=== PATIENT | female | born 1945 | race Caucasian/White ===

== ENCOUNTER → 2019-08-10 | Outpatient (CLI) | payer MEDICARE, OTHER ==
--- NOTE | 2019-08-10 12:10 | RADIOLOGY REPORT (SQ) ---
EXAM DESCRIPTION: CHEST PA/LATERAL COMPLETED DATE/TIME: 08/10/2019 11:58 am REASON FOR STUDY: WHEEZING COMPARISON: None. EXAM PARAMETERS: NUMBER OF VIEWS: two views TECHNIQUE: Digital Frontal and Lateral radiographic views of the chest acquired. RADIATION DOSE: NA LIMITATIONS: none FINDINGS: LUNGS AND PLEURA: No opacities, masses or pneumothorax. No pleural effusion. MEDIASTINUM AND HILAR STRUCTURES: No masses or contour abnormalities. HEART AND VASCULAR STRUCTURES: Heart normal size. No evidence for failure. BONES: No acute findings. HARDWARE: Right-sided pacemaker, clips post cholecystectomy OTHER: Eventration left hemidiaphragm IMPRESSION: NO SIGNIFICANT RADIOGRAPHIC FINDING IN THE CHEST. TECHNICAL DOCUMENTATION: JOB ID: [id number] 2010 [employer]- All Rights Reserved Reading location - IP/workstation name: [email or web address]
== END ==
LOC: RAD 11:40
PROVIDERS: ATTEND Nurse Practitioner Family
DX: R06.2 Wheezing (principal)
CPT/HCPCS: 71046

== ENCOUNTER 2019-10-17 16:02 | Emergency (ER) | payer MEDICARE, OTHER ==
--- NOTE | 2019-10-17 16:24 | RADIOLOGY REPORT (SQ) ---
EXAM DESCRIPTION: WRIST LEFT 3 VIEWS IMAGES COMPLETED DATE/TIME: 10/17/2019 4:14 pm REASON FOR STUDY: fall, pain COMPARISON: None. NUMBER OF VIEWS: Three views. TECHNIQUE: AP, lateral, and oblique radiographic images acquired of the left wrist. LIMITATIONS: None. FINDINGS: MINERALIZATION: Normal. BONES: No acute fracture dislocation. Degenerative changes in the carpal bones. Old ulnar styloid f racture. SOFT TISSUES: No soft tissue swelling. No foreign body. OTHER: No other significant finding. IMPRESSION: No acute findings. Degenerative changes. TECHNICAL DOCUMENTATION: JOB ID: [id number] 2010 [employer]- All Rights Reserved Reading location - IP/workstation name: [email or web address]
[2019-10-17] MEDS ORDERED: IBUPROFEN 800 MG TABLET PO ONE (16:26)
--- NOTE | 2019-10-17 16:33 | RADIOLOGY REPORT (SQ) ---
EXAM DESCRIPTION: CT HEAD WITHOUT IMAGES COMPLETED DATE/TIME: 10/17/2019 4:22 pm REASON FOR STUDY: Trauma, close head injury COMPARISON: None. TECHNIQUE: Axial images acquired through the brain without intravenous contrast. Images reviewed wi th bone, brain and subdural windows. Additional sagittal and coronal reconstructions were generated. Images stored on PACS. All CT scanners at this facility use dose modulation, iterative reconstruction, and/or weight based d osing when appropriate to reduce radiation dose to as low as reasonably achievable (ALARA). [facility]: Dose Right [facility]: CareDose [facility]: Dose Right [facility]: Teradose 4D [facility]: MiNOWireless RADIATION DOSE: mGy. LIMITATIONS: None. FINDINGS: VENTRICLES: Normal size and contour. CEREBRUM: No masses. No hemorrhage. No midline shift. No evidence for acute infarction. Normal gra y/white matter differentiation. No areas of low density in the white matter. CEREBELLUM: No masses. No hemorrhage. No alteration of density. No evidence for acute infarction. EXTRAAXIAL SPACES: No fluid collections. No masses. ORBITS AND GLOBE: No intra- or extraconal masses. Normal contour of globe without masses. CALVARIUM: No fracture. PARANASAL SINUSES: No fluid or mucosal thickening. SOFT TISSUES: No mass or hematoma. OTHER: No other significant finding. IMPRESSION: NORMAL BRAIN CT WITHOUT CONTRAST. EVIDENCE OF ACUTE STROKE: NO. COMMENT: Quality ID # [id number]: Final reports with documentation of one or more dose reduction techniques (e.g., Automated exposure control, adjustment of the mA and/or kV according to patient size, use of iterative reconstruction technique) TECHNICAL DOCUMENTATION: JOB ID: [id number] 2010 [employer]- All Rights Reserved Reading location - IP/workstation name: [email or web address]
--- NOTE | 2019-10-17 16:34 | RADIOLOGY REPORT (SQ) ---
EXAM DESCRIPTION: CT CERVICAL SPINE WITHOUT IMAGES COMPLETED DATE/TIME: 10/17/2019 4:22 pm REASON FOR STUDY: fall, pain COMPARISON: None. TECHNIQUE: Axial images acquired through the cervical spine without intravenous contrast. Images re viewed with lung, soft tissue and bone windows. Reconstructed coronal and sagittal MPR images review ed. Images stored on PACS. All CT scanners at this facility use dose modulation, iterative reconstruction, and/or weight based d osing when appropriate to reduce radiation dose to as low as reasonably achievable (ALARA). [facility]: Dose Right [facility]: CareDose [facility]: Dose Right [facility]: Teradose 4D [facility]: [employer] RADIATION DOSE: CT Rad equipment meets quality standard of care and radiation dose reduction techniq ues were employed. CTDIvol: 21.3 - 53.2 mGy. DLP: 1345 mGy-cm. mGy. LIMITATIONS: None. FINDINGS: ALIGNMENT: Anatomic. MINERALIZATION: Normal. VERTEBRAL BODIES: No fractures or dislocation. DISCS: No significant disc disease. FACETS, LATERAL MASSES, POSTERIOR ELEMENTS: No fractures. No dislocation. No acute findings. HARDWARE: None in the spine. VISUALIZED RIBS: No fractures. LUNG APICES AND SOFT TISSUES: There is a 1.4 cm ground-glass opacity in the left upper lobe. This is incompletely assessed on CT of the cervical spine. Differential includes atelectasis, pneumonia, sc ar or neoplasm. OTHER: No other significant finding. IMPRESSION: 1. No acute findings in the cervical spine. 2. 1.4 cm ground-glass opacity in the left lung apex. This is incompletely assessed. TECHNICAL DOCUMENTATION: JOB ID: [id number] Quality ID # [id number]: Final reports with documentation of one or more dose reduction techniques (e.g., Au tomated exposure control, adjustment of the mA and/or kV according to patient size, use of iterative reconstruction technique) 2010 [employer]- All Rights Reserved Reading location - IP/workstation name: [email or web address]
--- NOTE | 2019-10-17 16:40 | ER Document Report ---
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 Patient reports she was just walking with her great granddaughter outside and stepped in a hole the dog had dug. Patient denies change in LOC. She is not taking anticoagulants. She reports she did not hit her head. She denies feeling dizzy. Denies chest pain shortness of breath. Denies fever nausea vomiting diarrhea. Reports she does have a cough but it is only in the morning with a lot of phlegm. No other complaints besides left wrist pain. She has not taken anything for pain. TRAVEL OUTSIDE OF THE [place] IN LAST 30 DAYS: No - HPI Onset: Just prior to arrival Onset/Duration: Sudden Quality of pain: Achy Severity: Moderate Associated symptoms: None Exacerbated by: Movement Relieved by: Denies Similar symptoms previously: No Recently seen / treated by doctor: No - Related Data Allergies/Adverse Reactions: oxycodone Allergy (Verified 10/17/19 16:56) Penicillins Allergy (Verified 10/17/19 16:56) Sulfa (Sulfonamide Antibiotics) Allergy (Verified 10/17/19 16:56) Past Medical History - General Information source: Patient - Social History Smoking Status: Unknown if Ever Smoked Cigarette use (# per day): No Frequency of alcohol use: None Drug Abuse: None Lives with: Family Family History: None Patient has suicidal ideation: No Patient has homicidal ideation: No - Past Medical History Cardiac Medical History: Reports: Hx Coronary Artery Disease, Hx Hypertension Pulmonary Medical History: Reports: Hx COPD Neurological Medical History: Reports: Hx Cerebrovascular Accident Endocrine Medical History: Denies: Hx Diabetes Mellitus Type 1, Hx Diabetes Mellitus Type 2 Malignancy Medical History: Reports: None Traumatic Medical History: Reports: Hx Fractures Past Surgical History: Reports: Hx Appendectomy, Hx Hysterectomy, Hx Orthopedic Surgery, Hx Pacemaker Review of Systems - Review of Systems Notes: Review HPI for review of systems., All other systems negative Physical Exam - Vital signs Vitals: Temp Pulse Resp BP Pulse Ox 98.1 F 91 20 195/95 H 95 10/17/19 16:26 10/17/19 16:26 10/17/19 16:26 10/17/19 16:26 10/17/19 16:26 - General General appearance: Alert In distress: Mild - HEENT Head: Normocephalic. No: Atraumatic, Abrasions, Ecchymosis Eyes: Normal Conjunctiva: Normal Extraocular movements intact: Yes Neck: Normal, Supple. No: Lymphadenopathy - Respiratory Respiratory status: No respiratory distress Chest status: Nontender Breath sounds: Normal Chest palpation: Normal - Cardiovascular Rhythm: Regular Heart sounds: Normal auscultation Murmur: No - Abdominal Inspection: Normal Distension: No distension Tenderness: Nontender - Back Back: Normal, Nontender - Extremities General upper extremity: Normal ROM General lower extremity: Normal ROM Wrist: Tender - left Wrist Hand: Abrasion - Tip of right index finger - Neurological Neuro grossly intact: Yes Cognition: Normal Orientation: AAOx4 [place] Coma Scale Eye Opening: Spontaneous [place] Coma Scale Verbal: Oriented [place] Coma Scale Motor: Obeys Commands Manuel Coma Scale Total: 15 Speech: Normal - Psychological Associated symptoms: Normal affect, Normal mood - Skin Skin Temperature: Warm Skin Moisture: Dry Skin Color: Normal Course - Re-evaluation Re-evalutation: 10/17/19 16:[address] 10/17/19 16:05 IMPRESSION: 1. No acute findings in the cervical spine. 2. 1.4 cm ground-glass opacity in the left lung apex. This is incompletely assessed. Head CT 10/17/19 16:05 IMPRESSION: NORMAL BRAIN CT WITHOUT CONTRAST. EVIDENCE OF ACUTE STROKE: NO. Wrist X-Ray 10/17/19 16:05 IMPRESSION: No acute findings. Degenerative changes. 10/17/19 17:00 1.4 cm groundglass opacity in the left lung apex noted on cervical spine CT. Patient denies history of pneumonia. Patient reports she has been coughing a little bit more in the mornings with a lot of phlegm. She denies fever, denies difficulty breathing. CT chest without contrast ordered. Patient is alert and oriented answering all questions appropriately. Left wrist wrapped in Seferino wrap. Patient was given Motrin and an ice pack. She also was given Zofran for reports of feeling nauseated from the pain. 10/17/19 19:39 Multifocal groundglass noted via CT of the chest. Patient was instructed on this. Instructed on viral pneumonitis versus neoplasm. She was instructed on the importance of follow-up with a repeat chest x-ray or CT within the next 3 months. She was instructed that this could be cancer. She reports only time she really coughs this first thing in the morning. She reports she cannot lay flat to sleep but she has CHF. She verbalized understanding to all instructions. - Vital Signs Vital signs: Temp Pulse Resp BP Pulse Ox 98.0 F 84 18 147/83 H 95 10/17/19 18:26 10/17/19 18:26 10/17/19 18:26 10/17/19 18:26 10/17/19 18:26 - Diagnostic Test Radiology reviewed: Image reviewed, Reports reviewed Procedures - Immobilization Left Wrist Pre-Proc Neuro Vasc Exam: Normal Immobilizer type: Seferino wrap Performed by: BILLY solano Post-Proc Neuro Vasc Exam: Unchanged from pre-exam Alignment checked and good: Yes Discharge - Discharge Clinical Impression: Left wrist pain, Abnormal chest CT Fall Qualifiers: Encounter type: initial encounter Qualified Code(s): W19.XXXA - Unspecified fall, initial encounter Finger abrasion Qualifiers: Encounter type: initial encounter Qualified Code(s): S60.419A - Abrasion of unspecified finger, initial encounter Condition: Stable Disposition: HOME, SELF-CARE Instructions: Seferino Wrap ([facility]), Use of [employer]ok-Nth-Hmewnfh Ibuprofen ([facility]), Ice & Elevation ([facility]) Additional Instructions: *You have been evaluated post fall for wrist pain, finger abrasion, abnormal chest CT *Maintain the seferino wrap for comfort *Rest/Ice/Elevate your wrist *Your chest CT was abnormal and you need to have a repeat CT within the next 3 months. *Follow up with your doctor within the next few days for referral to orthopedic as indicated. Your doctor will also need to follow-up for repeat chest x-ray or CT within the next 3 months. *Take Tylenol or Motrin as indicated for pain *Return to ED for worsening condition, changes, needs Referrals: ESTEFANIA TRAVIS FNP [Primary Care Provider] - Follow up in 3-5 days
[2019-10-17] MEDS ORDERED: ONDANSETRON 4 MG TAB.RAPDIS PO ONE (16:53)
[2019-10-17] MEDS ORDERED: ONDANSETRON 4 MG TAB.RAPDIS ONE (16:54)
--- NOTE | 2019-10-17 18:00 | RADIOLOGY REPORT (SQ) ---
EXAM DESCRIPTION: CT CHEST WITHOUT IMAGES COMPLETED DATE/TIME: 10/17/2019 4:10 pm REASON FOR STUDY: productive cough, ground glass opacity seen on CT cervical spine. Recent ground l evel fall. COMPARISON: Chest radiograph 08/10/2019 TECHNIQUE: CT scan performed of the chest without intravenous contrast. Images reviewed with lung, soft tissue and bone windows. Reconstructed coronal and sagittal MPR images reviewed. All images st ored on PACS. All CT scanners at this facility use dose modulation, iterative reconstruction, and/or weight based d osing when appropriate to reduce radiation dose to as low as reasonably achievable (ALARA). [facility]: Dose Right [facility]: CareDose [facility]: Dose Right [facility]: Teradose 4D [facility]: [employer] RADIATION DOSE: CT Rad equipment meets quality standard of care and radiation dose reduction techniq ues were employed. CTDIvol: 14.8 mGy. DLP: 571 mGy-cm. mGy. LIMITATIONS: No technical limitations. FINDINGS: LUNGS AND PLEURA: The trachea has normal caliber and appearance. There is ill-defined michelle und-glass attenuation at the left lung apex measuring 1.6 cm (image 11). Subtle indistinct ground-gl ass attenuation at the medial left lung apex measuring 7 mm (image 9). Ground-glass attenuation in t he right upper lobe measuring 1 cm (image 17). Ill-defined ground-glass attenuation right lower lobe measuring 8 mm (image 34). Ill-defined ground-glass opacity in the left upper lobe measuring 1.3 cm (image 24). No focal confluent consolidation or pleural effusion. No pneumothorax. Chronic atelec tasis/ scarring in the lingula. HILAR AND MEDIASTINAL STRUCTURES: No identified masses or abnormal nodes. No obvious aneurysm. HEART AND VASCULAR STRUCTURES: No aneurysm. No pericardial effusion. UPPER ABDOMEN: No significant findings. Limited exam. THYROID AND OTHER SOFT TISSUES: Left breast mass with associated biopsy marker. No thyroid nodules. BONES: No significant finding. HARDWARE: None in the chest. OTHER: No other significant findings. IMPRESSION: 1. Multifocal ground-glass attenuation scattered in both lungs. Finding can be seen with viral pneum onitis, underlying neoplasm is not excluded. Clinical correlation is recommended. Follow-up CT in 3 months recommended to confirm resolution or stability. TECHNICAL DOCUMENTATION: JOB ID: [id number] Quality ID # [id number]: Final reports with documentation of one or more dose reduction techniques (e.g., Au tomated exposure control, adjustment of the mA and/or kV according to patient size, use of iterative reconstruction technique) 2010 [employer]- All Rights Reserved Reading location - IP/workstation name: [email or web address]
[2019-10-17 18:27] VITALS: BP 147/83
== END 2019-10-17 18:26 | disposition home or self-care (01) ==
LOC: ER 16:02
DX: S60.419A Abrasion of unspecified finger, initial encounter (principal); M25.532 Pain in left wrist; R05 Cough; R93.89 Abnormal findings on diagnostic imaging of other specified body structures; W19.XXXA Unspecified fall, initial encounter; Z88.0 Allergy status to penicillin; Z88.8 Allergy status to other drugs, medicaments and biological substances; Z88.2 Allergy status to sulfonamides; I25.10 Atherosclerotic heart disease of native coronary artery without angina pectoris; I10 Essential (primary) hypertension; J44.9 Chronic obstructive pulmonary disease, unspecified
CPT/HCPCS: 99284; 73110; 70450; 71250; 72125; A9270 ×2; S0119

== ENCOUNTER 2020-01-10 16:47 | Observation (INO) | payer MEDICARE, OTHER ==
[2020-01-10] MEDS ORDERED: ASPIRIN 81 MG TABLET, CHEWABLE PO ONE (18:18)
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
--- NOTE | 2020-01-10 18:41 | EKG REPORT ---
SEVERITY:- ABNORMAL ECG - ATRIAL-SENSED VENTRICULAR-PACED RHYTHM : Confirmed by: Meek Ji MD 10-Jan-2020 18:41:13
--- NOTE | 2020-01-10 18:59 | RADIOLOGY REPORT (SQ) ---
EXAM DESCRIPTION: CHEST 2 VIEWS IMAGES COMPLETED DATE/TIME: 01/10/2020 5:40 pm REASON FOR STUDY: chest pain. COMPARISON: 08/10/2019 EXAM PARAMETERS: NUMBER OF VIEWS: two views TECHNIQUE: Digital Frontal and Lateral radiographic views of the chest acquired. RADIATION DOSE: NA LIMITATIONS: none FINDINGS: LUNGS AND PLEURA: No opacities, masses or pneumothorax. No pleural effusion. MEDIASTINUM AND HILAR STRUCTURES: No masses or contour abnormalities. HEART AND VASCULAR STRUCTURES: Heart normal size. No evidence for failure. BONES: No acute findings. HARDWARE: Right infraclavicular pacemaker with intact lead wires unchanged. OTHER: No other significant finding. IMPRESSION: NO ACUTE RADIOGRAPHIC FINDING IN THE CHEST. TECHNICAL DOCUMENTATION: JOB ID: [id number] 2010 [employer]- All Rights Reserved Reading location - IP/workstation name: [email or web address]
[2020-01-10 19:16] LABS: ABSOLUTE BASOPHILS # (AUTO) 0.1 10^3/uL (0.0-0.2); ABSOLUTE EOSINOPHILS # (AUTO) 0.1 10^3/uL (0.0-0.6); ABSOLUTE LYMPHOCYTES (AUTO) 1.6 10^3/uL (0.5-4.7); ABSOLUTE MONOCYTES (AUTO) 0.7 10^3/uL (0.1-1.4); ABSOLUTE NEUT (AUTO) 6.7 10^3/uL (1.7-8.2); BASOPHILS % (AUTO) 1.3 % (0-2); HEMOGLOBIN 13.6 g/dL (12.0-15.5); LYMPHOCYTES % (AUTO) 17.7 % (13-45); MEAN CORPUSCULAR HEMOGLOBIN 30.2 pg (27.0-33.4); MEAN CORPUSCULAR HGB CONC 33.2 g/dL (32.0-36.0); MEAN CORPUSCULAR VOLUME 91 fl (80-97); MONOCYTES % (AUTO) 7.3 % (3-13); PLATELET COUNT 216 10^3/uL (150-450); RED BLOOD COUNT 4.51 10^6/uL (3.72-5.28); RED CELL DISTRIBUTION WIDTH 15.1 % (11.5-14.0); SEGMENTED NEUTROPHILS % (AUTO) 72.7 % (42-78); TOTAL CELLS COUNTED % (AUTO) 100 %; WHITE BLOOD COUNT 9.2 10^3/uL (4.0-10.5)
[2020-01-10 19:28] LABS: ALKALINE PHOSPHATASE 60 U/L (38-126); ANION GAP 5 (5-19); ASPARTATE AMINO TRANSFERASE 20 U/L (14-36); BILIRUBIN,TOTAL 0.3 mg/dL (0.2-1.3); BLOOD UREA NITROGEN 21 mg/dL (7-20); CALCIUM 9.2 mg/dL (8.4-10.2); CARBON DIOXIDE 26 mmol/L (22-30); CHLORIDE 109 mmol/L (98-107); GLUCOSE 116 mg/dL (75-110); POTASSIUM 4.2 mmol/L (3.6-5.0); TOTAL PROTEIN 6.8 g/dL (6.3-8.2)
[2020-01-10] MEDS ORDERED: PREDNISONE 20 MG TABLET PO ONE (22:52)
[2020-01-10] MEDS ORDERED: IPRATROPIUM/ALBUTEROL 0.5-2.5 MG/3 ML AMPUL NEB ONE (22:52)
[2020-01-10] MEDS ORDERED: ACETAMINOPHEN WITH CODEINE #3 TABLET PO ONE (22:52)
[2020-01-10] MEDS ORDERED: AZITHROMYCIN 250 MG TABLET PO ONE (22:52)
[2020-01-10] MEDS ORDERED: ONDANSETRON HCL INJ/PF 4 MG/2 ML SDV IV ONE (22:53)
--- NOTE | 2020-01-10 22:57 | ER Document Report ---
ED General - General Chief Complaint: Facial Swelling Stated Complaint: FACE,HAND SWELLING Time Seen by Provider: 01/10/20 18:14 Primary Care Provider: ESTEFANIA TRAVIS FNP [Primary Care Provider] - Follow up as needed Mode of Arrival: Ambulatory TRAVEL OUTSIDE OF THE [place] IN LAST 30 DAYS: No - HPI Notes: 74-year-old female history of COPD (no home O2), CAD (distant "silent" [place], no stents, no CABG), pacemaker for third-degree heart block, placed several months ago, CHF presents with shortness of breath and chest pain. Also complaining of right shoulder pain. Patient says that she has been feeling more short of breath over the past week with gradual worsening of her chronic productive nonbloody cough and then became much worse over the past 2 days when she had no access to her nebulizer because of power outage. Patient also has noticed that for many months she has had intermittent retrosternal chest pressure that is worse with exertion and has been worse over the last approximately 1 day. Patient now unable to walk more than few steps without feeling shortness of breath and chest pain. Patient denies any fever, sick contacts, lower extremity edema. Also has pain in lower posterior neck and right shoulder, pain in neck feels like it is coming off of the right side of her posterior neck and going into her shoulder. Intermittently has tingling sensation in her right upper extremity. Denies weakness, trauma, neck stiffness, headache, symptoms in other extremities. Says she had similar pain in past in her left neck and shoulder before she had unknown shoulder surgery. Has taken acetaminophen and ibuprofen for pain which have not relieved it. - Related Data Allergies/Adverse Reactions: oxycodone Allergy (Verified 01/10/20 18:16) Penicillins Allergy (Verified 01/10/20 18:16) Sulfa (Sulfonamide Antibiotics) Allergy (Verified 01/10/20 18:16) Past Medical History - General Information source: Patient, [facility] Records - Social History Smoking Status: Former Smoker Chew tobacco use (# tins/day): No Frequency of alcohol use: None Drug Abuse: None Family History: None - Past Medical History Cardiac Medical History: Reports: Hx Coronary Artery Disease, Hx Hypertension Pulmonary Medical History: Reports: Hx COPD Neurological Medical History: Reports: Hx Cerebrovascular Accident Endocrine Medical History: Denies: Hx Diabetes Mellitus Type 1, Hx Diabetes Mellitus Type 2 Traumatic Medical History: Reports: Hx Fractures Past Surgical History: Reports: Hx Appendectomy, Hx Hysterectomy, Hx Orthopedic Surgery, Hx Pacemaker Review of Systems - Review of Systems Notes: REVIEW OF SYSTEMS: CONSTITUTIONAL : Denies fever, chills, or sweats. EENT: Denies recent cold/sinus symptoms, denies throat pain CARDIOVASCULAR: + chest pain, -EV RESPIRATORY: + cough, + shortness of breath. GASTROINTESTINAL: Denies abdominal pain, nausea/vomiting. GENITOURINARY: Denies difficulty urinating, painful urination. FEMALE GENITOURINARY: Denies abnormal vaginal bleeding, vaginal discharge. MUSCULOSKELETAL: + neck pain, -back pain. SKIN: Denies rash or skin lesions. HEMATOLOGIC : Denies easy bruising or bleeding. LYMPHATIC: Denies swollen, enlarged glands. NEUROLOGICAL: Denies headache, denies change in gait. PSYCHIATRIC: Denies anxiety or stress or depression. Physical Exam - Vital signs Vitals: Temp Pulse Resp BP Pulse Ox 98.8 F 93 21 H 158/81 H 97 01/10/20 17:03 01/10/20 17:03 01/10/20 17:03 01/10/20 17:03 01/10/20 17:03 - Notes Notes: PHYSICAL EXAMINATION: GENERAL: Well-appearing, well-nourished and in no acute distress. HEAD: Atraumatic, normocephalic. EYES: Pupils equal round and appropriate constriction, sclera anicteric, conjunctiva are normal. ENT: nares patent, moist mucous membranes. NECK: Normal range of motion, supple without lymphadenopathy, mild lower C-spine midline tenderness without deformity LUNGS: Breath sounds equal bilaterally, decreased breath sounds/air movement with expiratory wheezing bilaterally, patient very mildly tachypneic at rest but becomes dyspneic when she exerts herself at all e.g. from moving around in the exam bed HEART: Distant heart sounds, regular rate and rhythm without murmurs ABDOMEN: Soft, nontender, no guarding, no masses, no CVAT, chronic indwelling [place] in place bag with clear yellow urine EXTREMITIES: Normal range of motion. No cyanosis. 5 out of 5 strength in all extremities, normal sensation in all distributions, mild pain with right shoulder abduction against resistance, normal inspection, no edema, radial pulses 2+ bilaterally and equal NEUROLOGICAL: Awake, alert, conversing appropriately, moves all extremities spontaneously. PSYCH: Normal mood, normal affect. SKIN: Warm, Dry, normal turgor, no rashes or lesions noted. Course - Re-evaluation Re-evalutation: 01/10/20 23:07 Patient said that her allergy to hydrocodone was nausea, initially attempted to give patient Tylenol with codeine because patient says that she had never had it and was willing to try it given that allergy to opioids is not true allergic reaction, but then patient's granddaughter spoke to daughter on phone and said that patient had had codeine before and had a rash so I canceled the order informed the nurse. I discussed using hydrocodone and pretreating with Zofran which the patient is in agreement with. 01/10/20 23:46 Exertional shortness of breath and chest pain concerning in patient with known CAD history, but most likely secondary to COPD exacerbation. Patient becomes very dyspneic with any exertion, poor air movement on auscultation of lungs, will treat for COPD exacerbation. No signs of impending respiratory failure. Neck pain and shoulder pain new, atraumatic, will obtain CT neck as patient has mild lower C-spine tenderness but low suspicion for pathologic fracture/dislocation. No indication to place patient in c-collar as patient is mentating normally and protecting her C-spine and will be at higher risk from manipulating the C-spine to place the c-collar. pain consistent with radicular nerve pain and osteoarthritis of right shoulder, normal neurovascular exam. Will continue to monitor pending likely observation admission. 01/10/20 23:54 Patient has improved air movement on repeat auscultation, with expiratory whe ezing, additional neb ordered and nurse informed 01/11/20 01:17 Initial troponin negative, discussed case with Dr. Fairbanks who is accepted patient for COPD and ACS rule out. - Vital Signs Vital signs: Temp Pulse Resp BP Pulse Ox 97.5 F 93 18 141/64 H 96 01/10/20 23:07 01/10/20 17:03 01/11/20 00:01 01/11/20 00:01 01/11/20 00:01 - Laboratory Result Diagrams: 01/10/20 18:55 01/10/20 18:55 Laboratory results interpreted by me: 01/10/20 01/10/20 01/10/20 18:55 18:55 18:55 RDW 15.1 H Chloride 109 H BUN 21 H Glucose 116 H NT-Pro-B Natriuret Pep 248 H - EKG Interpretation by Me Additional EKG results interpreted by me: 01/11/20 00:04 Heart rate 80, atrial sensed ventricular paced rhythm, QTC 476 Discharge - Discharge Clinical Impression: COPD exacerbation Chest pain Qualifiers: Chest pain type: unspecified Qualified Code(s): R07.9 - Chest pain, unspecified Disposition: ADMITTED OBSERVATION Admitting Provider: Tiki (Hospitalist) Unit Admitted: Telemetry Referrals: ESTEFANIA TRAVIS FNP [Primary Care Provider] - Follow up as needed
[2020-01-10] MEDS ORDERED: HYDROCODONE/ACETAMINOPHEN 5-325 MG TABLET PO ONE (23:07)
[2020-01-10] MEDS ORDERED: ALBUTEROL SULFATE 0.083% NEB 2.5 MG/3 ML AMPUL NEB ONE (23:55)
[2020-01-11 00:35] LABS: NT PRO BNP 248 pg/mL (<125)
[2020-01-11 00:36] LABS: VENOUS BLOOD HCO3 23.2 mmol/L (20-32); VENOUS BLOOD PCO2 41.6 mmHg (35-63); VENOUS BLOOD PH 7.37 (7.30-7.42)
[2020-01-11 00:37] LABS: TROPONIN I < 0.012 ng/mL
--- NOTE | 2020-01-11 00:59 | RADIOLOGY REPORT (SQ) ---
PROCEDURE: CLINICAL HISTORY: 74 years Female atraumatic radiating elderly shoulder and neck pain COMPARISON: 10/17/2019. TECHNIQUE: Contiguous axial images obtained through the cervical spine without IV contrast. Coronal and sagittal reformatted images obtained. This exam was performed according to our department optimization program which includes automated exposure control, adjustment of the mA and/or kv according to patient size and/or use of iterative reconstruction technique. FINDINGS: Vertebral body alignment is unremarkable. No acute fractures. Alignment appears unchanged when compared to the previous. Small marginal osteophytes are present. C5-6: Severe right neural foraminal stenosis. No significant central canal narrowing. There is also a small focus of groundglass density in the left lung apex measuring 1.5 cm. This was present on the previous exam and appears similar although slightly more dense. IMPRESSION: No acute cervical spinal fracture is identified. 1.5 cm focus of groundglass density in the left upper lobe which appears slightly more dense than on the previous CT examination from October. Recommend correlation with noncontrast CT of the chest as this is incompletely imaged. Malignancy is not excluded.
--- NOTE | 2020-01-11 01:09 | RADIOLOGY REPORT (SQ) ---
EXAM DESCRIPTION: XR SHOULDER 2 OR MORE VIEWS COMPLETED DATE/TME: 01/10/2020 22:53 CLINICAL HISTORY: 74 years, Female, atraumatic elderly shoulder pain COMPARISON: None. NUMBER OF VIEWS: 3 TECHNIQUE: 3 view right shoulder LIMITATIONS: None. FINDINGS: Negative for acute fracture or dislocation. [id number] degenerative changes of the acromial clavicular joint. Soft tissues are unremarkable. Osteopenia IMPRESSION: No acute osseous abnormality copyright 2010 [employer]- All Rights Reserved
[2020-01-11] MEDS ORDERED: MAG HYDROX/AL HYDROX/SIMETH SUSP 30 ML UDCUP PO PRN (02:06)
[2020-01-11] MEDS ORDERED: MAGNESIUM HYDROXIDE SUSP 30 ML UDCUP PO PRN (02:06)
[2020-01-11] MEDS ORDERED: LORAZEPAM INJ 2 MG/1 ML VIAL IV PRN (02:06)
[2020-01-11] MEDS ORDERED: MORPHINE SULFATE 10 MG/ML INJ IV PRN ×3 (02:06→02:32)
[2020-01-11] MEDS ORDERED: GUAIFENESIN SYRP 200 MG/10 ML UDC PO PRN (02:06)
[2020-01-11] MEDS ORDERED: MELATONIN 5 MG TABLET PO PRN (02:06)
[2020-01-11] MEDS ORDERED: LEVALBUTEROL HCL NEB 0.63 MG/3 ML AMPUL NEB PRN (02:07)
[2020-01-11] MEDS ORDERED: METHYLPREDNISOLONE INJ 125 MG/2 ML SDV IV ONE (02:14)
[2020-01-11] MEDS ORDERED: METHYLPREDNISOLONE INJ 40 MG/1 ML SDV IV SCH (02:15)
[2020-01-11 03:07] LABS: CREATINE KINASE MB 1.04 ng/mL (<4.55)
[2020-01-11 03:10] LABS: TROPONIN I < 0.012 ng/mL
--- NOTE | 2020-01-11 05:18 | PDOC H&P ---
History of Present Illness Admission Date/PCP: 01/11/20 01:26 [facility] Patient complains of: Dyspnea History of Present Illness: KAREN LOZADA is a 74 year old female who presented to the emergency room with a one-week history of dyspnea. She admits the gradual onset and progr essive worsening of dyspnea over the course of the last week. Her dyspnea is worsened by exertion and has been accompanied by intermittent substernal chest pressure with an associated severe sharp aching pain in her right upper arm and numbness radiating down the right arm to the hand. Her chest pressure and right arm pain/numbness are worsened by exertion and movement. She additionally admits an associated increase in her chronic cough and swelling in her hands and face. Her dyspnea and chest pressure have worsened over the last 2 days, as her home has been without electricity and she has been unable to use her home nebulizer, with her dyspnea becoming severe on 01/10/2020. She tried ibuprofen and Tylenol at home without relief. She admits similar prior episodes related to neck and shoulder problems. She denies other associated or accompanying signs and symptoms. She has not identified any additional aggravating or ameliorating factors for her dyspnea. In the emergency room she was found to have dyspnea and wheezing on exam which improved with nebulizer therapy. Initial cardiac enzymes and EKG were negative for acute myocardial ischemia or injury. Patient was subsequently admitted to the hospital for further evaluation and treatment on observation status. Past Medical History Cardiac Medical History: Reports: Coronary Artery Disease, Hypertension, Peripheral Vascular Disease - Cerebrovascular disease Denies: Atrial Fibrillation, Congestive Heart Failure, Myocardial Infarction Pulmonary Medical History: Reports: Chronic Obstructive Pulmonary Disease (COPD) Denies: Asthma EENT Medical History: Reports: Eyes - Prescription eyeglasses Denies: Ears - Hearing aids Neurological Medical History: Reports: Ischemic CVA Denies: Hemorrhagic CVA, Seizures Endocrine Medical History: Denies: Diabetes Mellitus Type 1, Diabetes Mellitus Type 2, Hyperthyroidism, Hypothyroidism Renal/ Medical History: Denies: Chronic Kidney Disease, Nephrolithiasis Malignancy Medical History: Reports: None GI Medical History: Denies: Cirrhosis, Hepatitis Musculoskeltal Medical History: Reports: Arthritis Denies: Gout Skin Medical History: Denies: Eczema, Psoriasis Psychiatric Medical History: Reports: Tobacco Dependency Denies: Alcohol Dependency, Substance Abuse Traumatic Medical History: Reports: None Hematology: Denies: Anemia, Bleeding Tendencies Infectious Medical History: Reports: None Past Surgical History Past Surgical History: Reports: Appendectomy, Hysterectomy, Orthopedic Surgery - Back surgery x2, shoulder surgery, Pacemaker, Other - Pharyngeal tumor resection Social History Information Source: Patient Lives with: Family Smoking Status: Former Smoker Electronic Cigarette use?: No Frequency of Alcohol Use: None Hx Recreational Drug Use: No Drugs: None Hx Prescription Drug Abuse: No - Advance Directive Resuscitation Status: Full Code Surrogate healthcare decision maker:: Bozena Milly Family History Family History: None Parental Family History Reviewed: No - Patient was an orphan and does not know anything of her family history Children Family History Reviewed: No Sibling(s) Family History Reviewed.: No Medication/Allergy Allergies/Adverse Reactions: oxycodone Allergy (Verified 01/10/20 18:16) Penicillins Allergy (Verified 01/10/20 18:16) Sulfa (Sulfonamide Antibiotics) Allergy (Verified 01/10/20 18:16) Review of Systems Constitutional: ABSENT: chills, fever(s) Eyes: ABSENT: visual disturbances, other - eye pain Ears: ABSENT: hearing changes, other - Ear pain Nose, Mouth, and Throat: ABSENT: headache(s), sore throat Cardiovascular: PRESENT: as per HPI, chest pain, dyspnea on exertion, edema. ABSENT: orthropnea, palpitations Respiratory: PRESENT: as per HPI, cough, dyspnea, sputum. ABSENT: hemoptysis Gastrointestinal: ABSENT: abdominal pain, constipation, diarrhea, nausea, vomiting Genitourinary: ABSENT: dysuria, hematuria Musculoskeletal: ABSENT: joint swelling, muscle weakness Integumentary: ABSENT: pruritus, rash Neurological: ABSENT: confusion, convulsions, focal weakness, memory loss, syncope Psychiatric: ABSENT: anxiety, depression Endocrine: ABSENT: cold intolerance, heat intolerance Hematologic/Lymphatic: ABSENT: easy bleeding, easy bruising Allergic/Immunologic: ABSENT: seasonal rhinorrhea Physical Exam Vital Signs: Temp Pulse Resp BP Pulse Ox 97.5 F 93 18 141/64 H 96 01/10/20 23:07 01/10/20 17:03 01/11/20 00:01 01/11/20 00:01 01/11/20 00:01 Intake & Output 01/09/20 01/10/20 01/11/20 23:59 23:59 23:59 Weight 87.6 kg General appearance: PRESENT: cooperative, mild distress - Secondary to dyspnea, obese Head exam: PRESENT: atraumatic, normocephalic Eye exam: PRESENT: conjunctiva pink. ABSENT: conjunctival injection, scleral icterus Ear exam: PRESENT: normal external ear exam. ABSENT: bleeding, drainage Mouth exam: PRESENT: dry mucosa, neck supple Neck exam: ABSENT: JVD, thyromegaly, tracheal deviation Respiratory exam: PRESENT: decreased breath sounds - Decreased air movement throughout all martin, prolonged expiratory phas - Moderate expiratory wheezes noted throughout all martin moderately prolonged expiratory phase noted throughout all martin, symmetrical, wheezes Cardiovascular exam: PRESENT: RRR. ABSENT: clicks, gallop, rubs Pulses: PRESENT: normal radial pulses, normal dorsalis pedis pul Vascular exam: PRESENT: normal capillary refill. ABSENT: pallor GI/Abdominal exam: PRESENT: normal bowel sounds, soft. ABSENT: tenderness Rectal exam: PRESENT: deferred Extremities exam: PRESENT: tenderness - Severe tenderness over the right deltoid and triceps muscular areas with exquisite point tenderness over the lateral head of the right triceps muscle.. ABSENT: joint swelling, pedal edema Musculoskeletal exam: ABSENT: deformity, dislocation Neurological exam: PRESENT: alert, oriented to person, oriented to place, oriented to time, oriented to situation, CN II-XII grossly intact. ABSENT: motor sensory deficit Psychiatric exam: PRESENT: appropriate affect, normal mood Skin exam: PRESENT: dry, intact, warm. ABSENT: jaundice, rash, urticaria Results Laboratory Results: 01/10/20 18:55 01/10/20 18:55 01/10/20 01/10/20 01/11/20 18:55 18:55 00:15 WBC 9.2 RBC 4.51 Hgb 13.6 Hct 41.0 MCV 91 MCH 30.2 MCHC 33.2 RDW 15.1 H Plt Count 216 Seg Neutrophils % 72.7 VBG pH 7.37 VBG pCO2 41.6 VBG HCO3 23.2 VBG Base Excess -2.0 Sodium 140.1 Potassium 4.2 Chloride 109 H Carbon Dioxide 26 Anion Gap 5 BUN 21 H Creatinine 0.89 Est GFR ( Amer) > 60 Glucose 116 H Calcium 9.2 Magnesium 2.3 Total Bilirubin 0.3 AST 20 Alkaline Phosphatase 60 Total Protein 6.8 Albumin 4.0 01/10/20 18:55 Troponin I < 0.012 NT-Pro-B Natriuret Pep 248 H Impressions: Chest X-Ray 01/10/20 18:18 IMPRESSION: NO ACUTE RADIOGRAPHIC FINDING IN THE CHEST. Cervical Spine CT 01/10/20 22:53 IMPRESSION: No acute cervical spinal fracture is identified. 1.5 cm focus of groundglass density in the left upper lobe which appears slightly more dense than on the previous CT examination from October. Recommend correlation with noncontrast CT of the chest as this is incompletely imaged. Malignancy is not excluded. Shoulder X-Ray 01/10/20 22:53 IMPRESSION: No acute osseous abnormality copyright 2011 [employer]- All Rights Reserved Assessment and Plan - Diagnosis (1) COPD exacerbation Is this a current diagnosis for this admission?: Yes (2) Chest pain Qualifiers: Chest pain type: unspecified Qualified Code(s): R07.9 - Chest pain, u nspecified Is this a current diagnosis for this admission?: Yes (3) Coronary artery disease Qualifiers: Coronary Disease-Associated Artery/Lesion type: [place] artery [place] vs. transplanted heart: [place] heart Associated angina: angina presence unspecified Qualified Code(s): I25.10 - Atherosclerotic heart disease of [place] coronary artery without angina pectoris Is this a current diagnosis for this admission?: Yes (4) Essential hypertension Is this a current diagnosis for this admission?: Yes (5) Cerebrovascular disease Is this a current diagnosis for this admission?: Yes (6) Pain in right upper arm Is this a current diagnosis for this admission?: Yes - Plan Summary Summary: Patient is admitted observation status on the telemetry unit where she will receive routine supportive and symptomatic cares. Serial cardiac enzymes be performed. She will receive supplemental oxygen as needed to maintain adequate oxygen saturation. She will receive an aggressive pulmonary toilet utilizing nebulized Xopenex, Pulmicort and Atrovent. She will receive IV Solu-Medrol to finish a burst dose schedule with 40 mg given every 6 hours x3 doses. She will receive Ativan 1 mg IV every 4 hours as needed for anxiety or restlessness. She will receive morphine sulfate 2 to 4 mg IV every 2 hours as needed for pain. A cardiology consultation with Dr. Kat will be obtained. An orthopedic consult with Dr. Perez will be obtained. She will be maintained on a cardiac diet. Her home medications will be restarted, as appropriate, when her medica tion list has been verified and reconciled. - Time Time Spent with patient: 15-24 minutes Medications reviewed and adjusted accordingly: Yes Anticipated Discharge Disposition: Home, Self Care Anticipated Discharge Timeframe: within 36 hours - Inpatient Certification Based on my medical assessment, after consideration of the patient's comorbidities, presenting symptoms, or acuity I expect that the services needed warrant INPATIENT care.: No I certify that my determination is in accordance with my understanding of Medicare's requirements for reasonable and necessary INPATIENT services [42 CFR 412.3e].: No
[2020-01-11] MEDS: MORPHINE SULFATE 10 MG/ML INJ IV PRN ×2 (05:23→07:44)
[2020-01-11] MEDS: HEPARIN SOD (PORCINE) 5,000 UNIT/ML 1 ML VIAL SUBCUT SCH ×2 (05:23→14:11)
[2020-01-11] MEDS: IPRATROPIUM BROMIDE 0.02% NEB 0.5 MG/2.5 ML AMPUL NEB SCH ×2 (08:08→15:45)
[2020-01-11] MEDS: BUDESONIDE NEB 0.5 MG/2 ML AMPUL NEB SCH ×2 (08:08→19:48)
[2020-01-11] MEDS: LEVALBUTEROL HCL NEB 1.25 MG/3 ML AMPUL NEB SCH ×2 (08:08→15:45)
[2020-01-11 09:39] LABS: CREATINE KINASE MB 1.25 ng/mL (<4.55)
[2020-01-11 09:45] LABS: TROPONIN I < 0.012 ng/mL
[2020-01-11] MEDS ORDERED: AZITHROMYCIN 250 MG TABLET PO SCH (10:00)
[2020-01-11] MEDS: METHYLPREDNISOLONE INJ 40 MG/1 ML SDV IV SCH ×2 (10:22→18:28)
[2020-01-11] MEDS: DOCUSATE SODIUM 100 MG CAPSULE PO SCH ×3 (10:22→18:26)
--- NOTE | 2020-01-11 13:08 | Progress Note ---
Provider Note Provider Note: Patient admitted late this morning by Dr. Fairbanks for COPD exacerbation, right shoulder pain. Seen and examined by me. Patient breathing comfortably without supplemental oxygen. She does state she is still getting exertional shortness of breath but states she only takes albuterol at home for her COPD. I have started her on Breo. Patient will be seen by cardiology and orthopedics according to Dr. Fairbanks's note from last night.
--- NOTE | 2020-01-11 13:57 | PDOC CONSULTATION ---
Consultation Consult Date: 01/11/20 Attending physician:: FOREIGN DURON Provider Consulted: DIANNE VALENTINE Consult reason:: CP History of Present Illness Admission Date/PCP: 01/11/20 01:26 [facility] History of Present Illness: KAREN LOZADA is a 74 year old female with history of hypertension, hyperlipidemia, stroke, complete heart block status post pacemaker implantation in April 2019 at [facility] who is consulted to our service for evaluation of chest pain. The patient presented to our emergency room complaining of chest pain for the last 2 weeks which has been progressively getting worse particularly in the last 2 days to the point she is unable to walk to her mailbox without having chest pain associated with significant shortness of breath that is relieved with rest. She describes the pain as a pressure, localized to the right upper chest, triggered by exertion such as walking to her mailbox and associated with significant shortness of breath, with occasional symptoms in the middle of the night. She denied associated palpitations, syncope, diaphoresis and presyncope. Sometimes the pain is associated with arm pain and numbness. Physical exam on 01/11/20: GENERAL: Pleasant and conversational. Oriented x3 with normal mood. Not in acute distress. Well groomed and well developed. HEENT: Normocephalic, atraumatic. Pupils equal. Sclerae anicteric. Oropharynx moist. NECK: No JVD. No carotid bruits. LUNGS: Clear to auscultation bilaterally. Normal respiratory effort without the use of accessory muscles or intercostal retractions. CARDIOVASCULAR: Regular rate and rhythm, normal S1 and S2 without murmurs, rubs, or gallops. PMI not displaced. ABDOMEN: No masses or tenderness to palpation. No bruit. No splenomegaly or hepatomegaly. No abdominal aorta bruit noted. EXTREMITIES: No edema, no cyanosis, no clubbing. +2 pulses femoral and pedal pulses bilaterally. SKIN: No lesions or rashes. MUSCULOSKELETAL: No chest tenderness to palpation. Past Medical History Cardiac Medical History: Reports: Coronary Artery Disease, Hypertension, P eripheral Vascular Disease - Cerebrovascular disease Denies: Atrial Fibrillation, Congestive Heart Failure, Myocardial Infarction Pulmonary Medical History: Reports: Chronic Obstructive Pulmonary Disease (COPD) Denies: Asthma EENT Medical History: Reports: Eyes - Prescription eyeglasses Denies: Ears - Hearing aids Neurological Medical History: Reports: Ischemic CVA Denies: Hemorrhagic CVA, Seizures Endocrine Medical History: Denies: Diabetes Mellitus Type 1, Diabetes Mellitus Type 2, Hyperthyroidism, Hypothyroidism Renal/ Medical History: Denies: Chronic Kidney Disease, Nephrolithiasis Malignancy Medical History: Reports: None GI Medical History: Denies: Cirrhosis, Hepatitis Musculoskeltal Medical History: Reports: Arthritis Denies: Gout Skin Medical History: Denies: Eczema, Psoriasis Psychiatric Medical History: Reports: Tobacco Dependency Denies: Alcohol Dependency, Depression, Substance Abuse Traumatic Medical History: Reports: None Hematology: Denies: Anemia, Bleeding Tendencies Infectious Medical History: Reports: None Past Surgical History Past Surgical History: Reports: Appendectomy, Hysterectomy, Orthopedic Surgery - Back surgery x2, shoulder surgery, Pacemaker, Other - Pharyngeal tumor resection Social History Lives with: Family Smoking Status: Former Smoker Electronic Cigarette use?: No Frequency of Alcohol Use: None Hx Recreational Drug Use: No Drugs: None Hx Prescription Drug Abuse: No - Advance Directive Resuscitation Status: Full Code Family History Family History: None Parental Family History Reviewed: Yes Children Family History Reviewed: Yes Sibling(s) Family History Reviewed.: Yes Medication/Allergy Home Medications: Albuterol Sulfate [Proair HFA Inhalation Aerosol 8.5 gm MDI] 2 puff IH Q6HP PRN 01/11/20 Albuterol Sulfate [Ventolin 0.083% Neb 2.5 mg/3 mL Ampul] 1 vial NEB RTBID Aspirin [Adult Low Dose Aspirin EC] 81 mg PO QHS 01/11/20 Lisinopril [Prinivil 5 mg Tablet] 5 mg PO QHS 01/11/20 Oxybutynin Chloride [Ditropan 5 mg Tablet] 20 mg PO QHS 01/11/20 Ropinirole HCl 0.5 mg PO QHS 01/11/20 Allergies/Adverse Reactions: oxycodone Allergy (Verified 01/10/20 18:16) Penicillins Allergy (Verified 01/10/20 18:16) Sulfa (Sulfonamide Antibiotics) Allergy (Verified 01/10/20 18:16) Physical Exam Vital Signs: Temp Pulse Resp BP Pulse Ox 97.9 F 102 H 24 H 133/52 H 98 01/11/20 02:57 01/11/20 02:58 01/11/20 02:57 01/11/20 02:57 01/11/20 02:57 Intake & Output 01/10/20 01/11/20 01/12/20 06:59 06:59 06:59 Intake Total 222 Output Total 200 Balance 22 Weight 87.2 kg Results Laboratory Results: 01/10/20 18:55 01/10/20 18:55 01/10/20 01/10/20 01/11/20 18:55 18:55 00:15 WBC 9.2 RBC 4.51 Hgb 13.6 Hct 41.0 MCV 91 MCH 30.2 MCHC 33.2 RDW 15.1 H Plt Count 216 Seg Neutrophils % 72.7 VBG pH 7.37 VBG pCO2 41.6 VBG HCO3 23.2 VBG Base Excess -2.0 Sodium 140.1 Potassium 4.2 Chloride 109 H Carbon Dioxide 26 Anion Gap 5 BUN 21 H Creatinine 0.89 Est GFR ( Amer) > 60 Glucose 116 H Calcium 9.2 Magnesium 2.3 Total Bilirubin 0.3 AST 20 Alkaline Phosphatase 60 Total Protein 6.8 Albumin 4.0 01/10/20 01/11/20 01/11/20 18:55 02:35 02:35 Creatine Kinase 71 CK-MB (CK-2) 1.04 Troponin I < 0.012 < 0.012 NT-Pro-B Natriuret Pep 248 H Impressions: Chest X-Ray 01/10/20 18:18 IMPRESSION: NO ACUTE RADIOGRAPHIC FINDING IN THE CHEST. Cervical Spine CT 01/10/20 22:53 IMPRESSION: No acute cervical spinal fracture is identified. 1.5 cm focus of groundglass density in the left upper lobe which appears slightly more dense than on the previous CT examination from October. Recommend correlation with noncontrast CT of the chest as this is incompletely imaged. Malignancy is not excluded. Shoulder X-Ray 01/10/20 22:53 IMPRESSION: No acute osseous abnormality copyright 2010 [email or web address] Rights Reserved 01/10/20 18:55 01/10/20 18:55 MCV 91 fl (80-97) 01/10/20 18:55 MCH 30.2 pg (27.0-33.4) 01/10/20 18:55 MCHC 33.2 g/dL (32.0-36.0) 01/10/20 18:55 RDW 15.1 % (11.5-14.0) H 01/10/20 18:55 Seg Neutrophils % 72.7 % (42-78) 01/10/20 18:55 VBG pH 7.37 (7.30-7.42) 01/11/20 00:15 VBG pCO2 41.6 mmHg (35-63) 01/11/20 00:15 VBG HCO3 23.2 mmol/L (20-32) 01/11/20 00:15 VBG Base Excess -2.0 mmol/L 01/11/20 00:15 Chloride 109 mmol/L (98-107) H 01/10/20 18:55 Carbon Dioxide 26 mmol/L (22-30) 01/10/20 18:55 Anion Gap 5 (5-19) 01/10/20 18:55 Est GFR ( Amer) > 60 (>60) 01/10/20 18:55 Glucose 116 mg/dL (75-110) H 01/10/20 18:55 Calcium 9.2 mg/dL (8.4-10.2) 01/10/20 18:55 Magnesium 2.3 mg/dL (1.6-2.3) 01/10/20 18:55 Total Bilirubin 0.3 mg/dL (0.2-1.3) 01/10/20 18:55 AST 20 U/L (14-36) 01/10/20 18:55 Alkaline Phosphatase 60 U/L (38-126) 01/10/20 18:55 Total Protein 6.8 g/dL (6.3-8.2) 01/10/20 18:55 Albumin 4.0 g/dL (3.5-5.0) 01/10/20 18:55 01/10/20 01/11/20 01/11/20 18:55 02:35 02:35 Creatine Kinase 71 CK-MB (CK-2) 1.04 Troponin I < 0.012 < 0.012 NT-Pro-B Natriuret Pep 248 H 01/11/20 01/11/20 08:00 08:00 Creatine Kinase 73 CK-MB (CK-2) 1.25 Troponin I < 0.012 NT-Pro-B Natriuret Pep Current Medication List Generic Name Dose Route Start Last Admin Trade Name Freq PRN Reason Stop Dose Admin Acetaminophen 650 mg 01/11/20 02:06 Tylenol 325 Mg Tablet PO 02/10/20 02:05 Q4HP PRN For headache, pain or fever Al Hydrox/Mg Hydrox/Simethicone 30 ml 01/11/20 02:06 Maalox Plus Susp 30 Udcup PO 02/10/20 02:05 Q6HP PRN HEARTBURN Azithromycin 500 mg 01/11/20 10:00 01/11/20 10:22 Zithromax 250 Mg Tablet PO 01/18/20 09:59 500 mg DAILY KASEY Administration Budesonide 0.5 mg 01/11/20 08:00 01/11/20 08:08 Pulmicort Neb 0.5 Mg/2 Ml Ampul NEB 02/10/20 07:59 0.5 mg RTBID KASEY Administration Docusate Sodium 100 mg 01/11/20 10:00 01/11/20 10:22 Colace 100 Mg Capsule PO 02/10/20 09:59 100 mg BID KASEY Administration Guaifenesin 200 mg 01/11/20 02:06 Robitussin Syrup 200 Mg/10 Ml Ud Cup PO 02/10/20 02:05 Q4HP PRN COUGH Heparin Sodium (Porcine) 5,000 unit 01/11/20 06:00 01/11/20 05:23 Heparin Inj 5,000 Units/Ml 1 Ml Vial SUBCUT 02/10/20 05:59 5,000 unit Q8 KASEY Administration Ipratropium [place] 0.5 mg 01/11/20 08:00 01/11/20 08:08 Atrovent 0.02% Neb 0.5 Mg/2.5 Ml Ampul NEB 02/10/20 07:59 0.5 mg RTQ8 KASEY Administration Levalbuterol HCl 0.63 mg 01/11/20 02:07 Xopenex Neb 0.63 Mg/3 Ml Ampul NEB 02/10/20 02:06 RTQ2HP PRN SHORTNESS OF BREATH Levalbuterol HCl 1.25 mg 01/11/20 08:00 01/11/20 08:08 Xopenex Neb 1.25 Mg/3 Ml Ampul NEB 02/10/20 07:59 1.25 mg RTQ8 KASEY Administration Magnesium Hydroxide 30 ml 01/11/20 02:06 Milk Of Magnesia 30 Ml Udcup PO 02/10/20 02:05 HSP PRN FOR CONSTIPATION Melatonin 5 mg 01/11/20 02:06 Melatonin 5 Mg Tablet PO 02/10/20 02:05 HSP PRN SLEEP OR INSOMNIA Methylprednisolone Sodium Succinate 40 mg 01/11/20 10:00 01/11/20 10:22 Solu-Medrol Inj/Pf 40 Mg/1 Ml Sdv IV 01/11/20 22:01 40 mg Q6H KASEY Administration Sodium Chloride 2.5 ml 01/11/20 06:00 01/11/20 05:23 Saline Flush 2.5 Ml Monoject Prefil Syrin IV 02/10/20 05:59 Not Given Q8 KASEY Discontinued Medications Generic Name Dose Route Start Last Admin Trade Name Freq PRN Reason Stop Dose Admin Acetaminophen/Codeine Phosphate 1 each 01/10/20 22:52 01/10/20 23:26 Tylenol #3 Tablet PO 01/10/20 22:53 Not Given NOW ONE Hydrocodone Bitart/Acetaminophen 1 tab 01/10/20 23:07 01/11/20 00:08 [place] 5-325 Mg Tablet PO 01/10/20 23:08 1 tab NOW ONE Administration Albuterol 2.5 mg 01/10/20 23:55 01/11/20 00:09 Ventolin 0.083% Neb 2.5 Mg/3 Ml Ampul NEB 01/10/20 23:56 2.5 mg NOW ONE Administration Albuterol/Ipratropium 9 ml 01/10/20 22:52 01/10/20 23:09 Duoneb 3 Ml Ampul NEB 01/10/20 22:53 9 ml NOW ONE Administration Aspirin 324 mg 01/10/20 18:18 01/10/20 18:22 Aspirin 81 Mg Chewable Tablet PO 01/10/20 18:19 324 mg NOW ONE Administration Azithromycin 500 mg 01/10/20 22:52 01/10/20 23:08 Zithromax 250 Mg Tablet PO 01/10/20 22:53 500 mg NOW ONE Administration Lorazepam 1 mg 01/11/20 02:06 Ativan Inj 2 Mg/1 Ml Vial IV 01/18/20 02:05 Q4HP PRN ANXIETY/AGITATION Methylprednisolone Sodium Succinate 40 mg 01/11/20 02:15 Solu-Medrol Inj/Pf 40 Mg/1 Ml Sdv IV 01/11/20 14:16 Q6H KASEY Methylprednisolone Sodium Succinate 125 mg 01/11/20 02:14 01/11/20 03:17 Solu-Medrol Inj/Pf 125 Mg/2 Ml Sdv IV 01/11/20 02:15 125 mg NOW ONE Administration Morphine Sulfate 2 - 4 mg 01/11/20 02:06 Morphine 10 Mg/Ml Inj IV 01/18/20 02:05 Q2HP PRN See protocol Protocol Morphine Sulfate 2 mg 01/11/20 02:32 Morphine 10 Mg/Ml Inj IV 01/18/20 02:31 Q2HP PRN PAIN SCALE OF 2 Morphine Sulfate 3 mg 01/11/20 02:32 01/11/20 03:17 Morphine 10 Mg/Ml Inj IV 01/18/20 02:31 3 mg Q2HP PRN Administration FOR PAIN SCALE 3-4 Morphine Sulfate 4 mg 01/11/20 02:32 01/11/20 07:44 Morphine 10 Mg/Ml Inj IV 01/18/20 02:31 4 mg Q2HP PRN Administration PAIN SCALE OF 5 Ondansetron HCl 4 mg 01/10/20 22:53 01/10/20 23:25 Zofran Inj/Pf 4 Mg/2 Ml Sdv IV 01/10/20 22:54 4 mg NOW ONE Administration Prednisone 40 mg 01/10/20 22:52 01/10/20 23:07 Deltasone 20 Mg Tablet PO 01/10/20 22:53 40 mg NOW ONE Administration Assessment & Plan - Diagnosis (1) Unstable angina Plan: 74-year-old female with multiple cardiac risk factors for coronary artery disease with a two-week history of progressively worsening chest pain particularly in the last 2 days consistent with unstable angina. Her cardiac troponins have been negative as well as her chest x-ray. The patient tells me that she is active at home and has been very limited particular in the last 2 days due to her chest discomfort and shortness of breath. Given the severity of her symptoms and her high risk for obstructive coronary artery disease I believe the best strategy is to proceed with left heart catheterization which was explained to the patient and she verbalized her desire to proceed. Even though the patient was admitted with a diagnosis of COPD exacerbation, her lungs are c lear to auscultation and her chest x-ray is negative for any infection therefore I believe her symptoms are cardiac in etiology. Recommendations: -Sublingual nitroglycerin as needed. -Start baby aspirin. -Low-dose beta-samanta. -Moderate intensity statin therapy. -Transfer to [facility] for invasive assessment with [facility].
[2020-01-11] MEDS ORDERED: FLUTICASONE/VILANTEROL 100-25 MCG/DOSE IH SCH (14:00)
[2020-01-11] MEDS ORDERED: GABAPENTIN 100 MG CAPSULE PO SCH (15:00)
[2020-01-11] MEDS: ACETAMINOPHEN 325 MG TABLET PO PRN ×2 (15:26→20:38)
[2020-01-11 15:37] LABS: CREATINE KINASE MB 1.45 ng/mL (<4.55)
[2020-01-11 15:38] LABS: TROPONIN I < 0.012 ng/mL
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
[2020-01-11 20:59] VITALS: BP 107/51
== END 2020-01-11 20:57 | disposition short-term general hospital (02) ==
LOC: ER 16:47 → INTOOBSV 01-11 01:26 → EH 01-11 01:26 → 5 01-11 02:56
PROVIDERS: ADMIT Emergency Medicine; ATTEND Internal Medicine
DX: I25.110 Atherosclerotic heart disease of native coronary artery with unstable angina pectoris (principal); J44.1 Chronic obstructive pulmonary disease with (acute) exacerbation; M79.621 Pain in right upper arm; I67.9 Cerebrovascular disease, unspecified; I10 Essential (primary) hypertension; E78.5 Hyperlipidemia, unspecified; I44.2 Atrioventricular block, complete; I73.9 Peripheral vascular disease, unspecified; M25.511 Pain in right shoulder; M79.89 Other specified soft tissue disorders; M48.02 Spinal stenosis, cervical region; E66.9 Obesity, unspecified; M19.90 Unspecified osteoarthritis, unspecified site; I25.2 Old myocardial infarction; Z20.828 Contact with and (suspected) exposure to other viral communicable diseases; Z79.82 Long term (current) use of aspirin; Z79.899 Other long term (current) drug therapy; Z86.73 Personal history of transient ischemic attack (TIA), and cerebral infarction without residual deficits; Z95.0 Presence of cardiac pacemaker; Z88.6 Allergy status to analgesic agent; Z88.0 Allergy status to penicillin; Z88.2 Allergy status to sulfonamides; Z87.891 Personal history of nicotine dependence; Z59.1 Inadequate housing; Z98.890 Other specified postprocedural states
CPT/HCPCS: 93005; 94640 ×2; 99285; 96374; 36415 ×2; 82553; 82550; 83735; 85025; 80053; 84484; 82803; 83880; 71046; 73030; 72125; 93010; G0378; U0003; A9270 ×9; J1644; J2920; J2930; J2270; J3490 ×4; J2405; C9803; 87635; J7512

== ENCOUNTER → 2020-04-25 | Outpatient (CLI) | payer MEDICARE, OTHER ==
--- NOTE | 2020-04-25 11:29 | WOMENS IMAGING REPORT ---
EXAM DESCRIPTION: U/S ABDOMEN LIMITED IMAGES COMPLETED DATE/TIME: 04/25/2020 8:41 am REASON FOR STUDY: R19.09 OTHER INTRA-ABDOMINAL AND PELVIC SWELLING, MASS AND LUMP R19.09 OTHER INTR A-ABDOMINAL AND PELVIC SWELLING, MASS AND L COMPARISON: None. TECHNIQUE: Dynamic and static grayscale images acquired of the abdomen and recorded on PACS. Additio nal selected color Doppler and spectral images recorded. LIMITATIONS: Body habitus. FINDINGS: PANCREAS: Poorly seen. LIVER: Increased echogenicity. No masses. LIVER VASCULATURE: Normal directional flow of the main portal vein and hepatic veins. GALLBLADDER: Surgically absent. ULTRASOUND-DETECTED GALVAN'S SIGN: Not applicable. INTRAHEPATIC DUCTS AND COMMON DUCT: CBD and intrahepatic ducts normal caliber. No filling defects. INFERIOR VENA CAVA: Not seen. AORTA: Not seen. RIGHT KIDNEY: Small, 8.4 cm. Normal echogenicity. No solid or suspicious masses. No hydronephrosis. No calcifications. PERITONEAL AND RIGHT PLEURAL SPACE: No ascites or effusions. OTHER: There is a small supraumbilical ventral hernia that appears to contain fat. IMPRESSION: 1. Hepatic steatosis. 2. Supraumbilical ventral hernia. TECHNICAL DOCUMENTATION: JOB ID: [id number] 2010 [employer]- All Rights Reserved Reading location - IP/workstation name: [email or web address]
== END ==
LOC: WI 08:06
PROVIDERS: ATTEND Nurse Practitioner Family
DX: K43.9 Ventral hernia without obstruction or gangrene (principal); K76.0 Fatty (change of) liver, not elsewhere classified
CPT/HCPCS: 76705